=== PATIENT | female | born 1980 | race Caucasian/White ===

== ENCOUNTER 2018-02-07 15:18 | Observation (INO) ==
[2018-02-07 16:03] LABS: Basophils % 0.2 % (0.1-2.0); Eosinophils # 0.1 K/mm3 (0.0-0.4); Eosinophils % 0.3 % (0.1-12.0); Hematocrit 48.7 % (37.0-47.0); Hemoglobin 15.2 g/dL (12.2-16.2); Lymphocytes # 1.3 K/mm3 (0.7-4.5); Lymphocytes % 6.8 K/mm3 (10-50); Mean Corpuscular HGB Conc 31.1 g/dL (31.8-35.4); Mean Corpuscular Hemoglobin 32.2 pg (27.0-31.2); Mean Corpuscular Volume 103.4 fl (81-99); Mean Platelet Volume 7.9 fl (7.4-10.4); Monocytes # 1.1 K/mm3 (0.1-1.0); Neutrophils % 86.7 % (37.0-80.0); Platelet Count 348 K/mm3 (142-424); Red Blood Count 4.71 M/mm3 (4.20-5.40); White Blood Count 18.4 K/mm3 (4.8-10.8)
[2018-02-07 16:16] LABS: Anion Gap 12.8 mEq/L (5-15); Blood Urea Nitrogen 13 mg/dL (7-18); Calcium 9.1 mg/dL (8.5-10.1); Carbon Dioxide 24 mmol/L (21.0-32.0); Chloride 110 mmol/L (98-107); Glucose 93 mg/dL (74-106); Potassium 3.8 mmoL/L (3.5-5.1); Sodium 143 mmol/L (136-145)
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
[2018-02-07 16:39] LABS: Eosinophils % 2 % (0-3); Lymphocytes % 8 % (10-50); Macrocytosis 1+; Monocytes % 7 % (2-9); Neutrophils % 78 % (42-76); Total Cells Counted 100
[2018-02-07 19:40] LABS: Microscopic, Urine URINE MICROSCOPIC (MICROSCOPIC)
[2018-02-07 20:08] LABS: Bacteria,Urine 2+ /lpf; RBC,Urine Occasional #/hpf (0-3); Squamous Epithelial Cell,Urine TNTC #/hpf (0-5); WBC,Urine Occasional #/hpf (0-3)
[2018-02-07 20:11] LABS: Appearance,Urine CLEAR (Clear); Bilirubin,Urine Negative (Negative); Blood, Urine 2+ (Negative); Color,Urine YELLOW (Yellow); Glucose,Urine (UA) Negative (Negative); Ketones,Urine Negative (Negative); Leukocyte Esterase,Urine Negative (Negative); Protein,Urine Negative (Negative); Specific Gravity, Urine >= 1.030 (1.005-1.030); Urobilinogen,Urine 0.2 EU/dl (0.2)
[2018-02-08 08:29] VITALS: BP 106/58
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
== END 2018-02-08 10:22 | disposition home or self-care (01) ==
LOC: ER 15:18 → 2ND 15:18
PROVIDERS: ADMIT Family Medicine; ATTEND Family Medicine

== ENCOUNTER → 2018-07-19 11:45 | Outpatient (CLI) | payer MEDICARE, OTHER, SELFPAY ==
[2018-07-19 14:58] LABS: Basophils % 0.3 % (0.1-2.0); Eosinophils # 0.2 K/mm3 (0.0-0.4); Eosinophils % 2.6 % (0.1-12.0); Hematocrit 39.1 % (37.0-47.0); Hemoglobin 12.9 g/dL (12.2-16.2); Lymphocytes # 3.1 K/mm3 (0.7-4.5); Lymphocytes % 47.2 % (10-50); Mean Corpuscular HGB Conc 32.9 g/dL (31.8-35.4); Mean Corpuscular Hemoglobin 32.8 pg (27.0-31.2); Mean Corpuscular Volume 99.9 fl (81-99); Mean Platelet Volume 8.7 fl (7.4-10.4); Monocytes # 0.5 K/mm3 (0.1-1.0); Monocytes % 7.3 % (1.7-9.3); Neutrophils # 2.8 K/mm3 (1.8-7.8); Neutrophils % 42.6 % (37.0-80.0); Platelet Count 295 K/mm3 (142-424); Red Blood Count 3.91 M/mm3 (4.20-5.40); Red Cell Distribution Width 13.3 % (11.5-17.5); White Blood Count 6.6 K/mm3 (4.8-10.8)
[2018-07-19 16:18] LABS: Alanine Aminotransferase 22 U/L (12-78); Albumin Level 3.6 gm/dL (3.4-5.0); Albumin/Globulin Ratio 1.2 (1.1-1.8); Alkaline Phosphatase 58 U/L (46-116); Anion Gap 12.9 mEq/L (5-15); Aspartate Amino Transferase 39 U/L (15-37); Bilirubin,Total 0.2 mg/dL (0.2-1.0); Blood Urea Nitrogen 15 mg/dL (7-18); Calcium 8.3 mg/dL (8.5-10.1); Carbon Dioxide 24 mmol/L (21.0-32.0); Chloride 107 mmol/L (98-107); Chol/HDL Ratio 3.7 (1-3.5); Cholesterol 178 mg/dL (140-200); Creatinine,Serum 1.24 mg/dL (0.55-1.02); Estimated Glomerular Filt Rate 48 ml/min (>60); Free T4 (Free Thyroxine) 0.93 ng/dl (0.76-1.46); GFR (African American) 58 ML/MIN (>60); Globulin 3.1 gm/dl (1.3-3.2); Glucose 88 mg/dL (74-106); HDL Cholesterol 48 mg/dL (29-89); LDL Cholesterol 89 mg/dL (0-130); Potassium 3.9 mmoL/L (3.5-5.1); Sodium 140 mmol/L (136-145); Thyroid Stimulating Hormone 2.77 uIU/ml (0.358-3.740); Total Protein,Serum 6.7 gm/dL (6.4-8.2); Triglycerides 204 mg/dL (30-200); VLDL Cholesterol 41 mg/dL (0-40)
== END ==
PROVIDERS: PCP Physician Assistant; Visit Provider Physician Assistant
DX: E03.9 Hypothyroidism, unspecified (principal); I10 Essential (primary) hypertension
CPT/HCPCS: 36415; 80053; 80061; 84439; 84443; 85025

== ENCOUNTER → 2018-10-21 11:46 | Outpatient (CLI) | payer MEDICARE, OTHER, SELFPAY ==
[2018-10-21 14:17] LABS: Basophils % 0.5 % (0.1-2.0); Eosinophils # 0.2 K/mm3 (0.0-0.4); Eosinophils % 4.1 % (0.1-12.0); Hematocrit 34.1 % (37.0-47.0); Hemoglobin 11.2 g/dL (12.2-16.2); Lymphocytes # 1.8 K/mm3 (0.7-4.5); Lymphocytes % 48.6 % (10-50); Mean Corpuscular HGB Conc 32.9 g/dL (31.8-35.4); Mean Corpuscular Hemoglobin 32.6 pg (27.0-31.2); Mean Platelet Volume 7.6 fl (7.4-10.4); Monocytes # 0.3 K/mm3 (0.1-1.0); Monocytes % 6.7 % (1.7-9.3); Neutrophils # 1.5 K/mm3 (1.8-7.8); Platelet Count 247 K/mm3 (142-424); Red Blood Count 3.44 M/mm3 (4.20-5.40); White Blood Count 3.8 K/mm3 (4.8-10.8)
[2018-10-21 14:47] LABS: Alanine Aminotransferase 40 U/L (12-78); Albumin Level 3.4 gm/dL (3.4-5.0); Albumin/Globulin Ratio 1.2 (1.1-1.8); Alkaline Phosphatase 59 U/L (46-116); Anion Gap 14.8 mEq/L (5-15); Aspartate Amino Transferase 27 U/L (15-37); Bilirubin,Total 0.1 mg/dL (0.2-1.0); Blood Urea Nitrogen 11 mg/dL (7-18); Calcium 8.5 mg/dL (8.5-10.1); Carbon Dioxide 24 mmol/L (21.0-32.0); Chloride 105 mmol/L (98-107); Creatinine,Serum 0.88 mg/dL (0.55-1.02); Estimated Glomerular Filt Rate 71 ml/min (>60); GFR (African American) 86 ML/MIN (>60); Globulin 2.9 gm/dl (1.3-3.2); Glucose 81 mg/dL (74-106); Potassium 3.8 mmoL/L (3.5-5.1); Sodium 140 mmol/L (136-145); Total Protein,Serum 6.3 gm/dL (6.4-8.2)
[2018-10-23 08:25] LABS: Iron 62 ug/dL (27-159); Iron Saturation 24 % (15-55); UIBC 196 ug/dL (131-425)
[2018-10-23 08:42] LABS: Folate 9.2 ng/mL (>3.0); Vitamin B12 363 pg/mL (232-1245)
[2018-10-23 11:48] LABS: Peripheral Smear Review Scanned Result
== END ==
PROVIDERS: PCP Physician Assistant; Visit Provider Physician Assistant
DX: D64.9 Anemia, unspecified (principal); R94.4 Abnormal results of kidney function studies
CPT/HCPCS: 36415; 80053; 82043; 82607; 82746; 83540; 83550; 85025; 85060

== ENCOUNTER 2022-03-05 10:56 | Emergency (ER) | payer MEDICARE, SELFPAY ==
[2022-03-05 11:10] VITALS: BP 129/62; PULSE 69; RESP 18; TEMP 36.8; O2SAT 98; BMI 27.8
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
[2022-03-05 11:28] VITALS: BP 129/62; PULSE 69; RESP 18; TEMP 36.8; O2SAT 98
== END 2022-03-05 11:32 | disposition home or self-care (01) ==
PROVIDERS: Emergency Provider Nurse Practitioner
DX: Z20.822 Contact with and (suspected) exposure to COVID-19 (principal)
CPT/HCPCS: 99211; C9803; G0463; U0003; U0005

== ENCOUNTER → 2022-03-31 14:30 | Outpatient (CLI) | payer MEDICARE, MEDICAID, SELFPAY ==
[2022-03-31 21:07] LABS: Basophils # 0.1 K/mm3 (0-0.2); Basophils % 1.1 % (0.1-2.0); Eosinophils # 0.1 K/mm3 (0.0-0.4); Eosinophils % 1.5 % (0.1-12.0); Hematocrit 39.7 % (37.0-47.0); Hemoglobin 12.8 g/dL (12.2-16.2); Lymphocytes # 1.7 K/mm3 (0.7-4.5); Lymphocytes % 35.4 % (10-50); Mean Corpuscular HGB Conc 32.2 g/dL (31.8-35.4); Mean Corpuscular Hemoglobin 33.4 pg (27.0-31.2); Mean Corpuscular Volume 103.6 fl (81-99); Mean Platelet Volume 10.3 fl (7.4-10.4); Monocytes # 0.3 K/mm3 (0.1-1.0); Monocytes % 6.7 % (1.7-9.3); Neutrophils # 2.6 K/mm3 (1.8-7.8); Neutrophils % 55.3 % (37.0-80.0); Platelet Count 344 K/mm3 (142-424); Red Blood Count 3.83 M/mm3 (4.20-5.40); White Blood Count 4.8 K/mm3 (4.8-10.8)
[2022-03-31 21:20] LABS: Alanine Aminotransferase 13 U/L (12-78); Albumin Level 3.9 g/dl (3.5-5.0); Albumin/Globulin Ratio 1.4 (1.1-1.8); Alkaline Phosphatase 82 U/L (38-126); Anion Gap 14.6 mEq/L (5-15); Aspartate Amino Transferase 28 U/L (14-36); Bilirubin,Total 0.4 mg/dl (0.2-1.3); Blood Urea Nitrogen 6 mg/dl (7-17); Calcium 9.1 mg/dl (8.4-10.2); Carbon Dioxide 18 mmol/L (22.0-30.0); Chloride 112 mmol/L (98-107); Estimated Glomerular Filt Rate 68 ml/min (>60); GFR (African American) 82 ML/MIN (>60); Globulin 2.8 g/dL (1.3-3.2); Glucose 95 mg/dl (74-100); Potassium 3.6 mmoL/L (3.5-5.1); Sodium 141 mmol/L (136-145); Total Protein,Serum 6.7 g/dl (6.3-8.2)
[2022-03-31 21:50] LABS: Thyroid Stimulating Hormone 0.76 uIU/mL (0.465-4.68)
[2022-03-31 23:25] LABS: Hemoglobin A1C 4.7 % (4.0-6.0)
== END ==
PROVIDERS: Student in an Organized Health Care Education/Training Program; PCP Family Medicine; Visit Provider Family Medicine
DX: Z76.89 Persons encountering health services in other specified circumstances (principal); E16.2 Hypoglycemia, unspecified; I10 Essential (primary) hypertension; E03.9 Hypothyroidism, unspecified
CPT/HCPCS: 80053; 83036; 84443; 85025

== ENCOUNTER 2022-06-23 08:41 | Emergency (ER) | payer MEDICARE, MEDICAID, SELFPAY ==
--- NOTE | 2022-06-23 09:39 | EXP.UTC ---
Discharge Plan Disposition Patient Disposition: Home, Self-Care Condition: Good Prescriptions Prescriptions: New benzonatate [benzonatate] 100 mg capsule 100 mg PO TIDP PRN (Reason: Cough) Qty: 30 0RF oseltamivir [Tamiflu] 75 mg capsule 75 mg PO BID Qty: 10 0RF ondansetron 4 mg Tablet,Disintegrating 4 mg PO Q8H PRN (Reason: Nausea) Qty: 9 0RF No Action lubiprostone 8 mcg capsule 8 mcg PO BID levothyroxine 25 mcg tablet 25 mcg PO DAILY trazodone 150 mg tablet 150 mg PO HS Qty: 60 2RF topiramate 100 mg tablet 100 mg PO BID Qty: 60 2RF ondansetron 4 mg tablet,disintegrating 4 mg PO TID PRN (Reason: nausea and vomiting) Qty: 60 2RF cyclobenzaprine 10 mg tablet 10 mg PO BID PRN (Reason: muscle spasm) Qty: 60 2RF bupropion HCl 450 mg tablet extended release 24 hr 450 mg PO DAILY Qty: 30 2RF dexlansoprazole [Dexilant] 60 mg capsule,biphase delayed releas 60 mg PO BID 90 Days Qty: 180 0RF suvorexant 10 mg tablet 10 mg PO HS Qty: 30 2RF atenolol 50 mg tablet 50 mg PO DAILY Qty: 60 2RF Referrals Follow up/Referrals: Oziel Hickman MD [Primary Care Provider] - See instructions Activity Restrictions/Add. Instructions Additional Instructions/Restrictions: Drink plenty of fluids. Take tylenol or ibuprofen for pain or fever. Take the medications as directed. Follow up with your regular doctor. GO TO THE ER FOR ANY WORSENING SYMPTOMS Clinical Impressions Clinical Impression: Influenza A Instructions Patient Instructions: DI for Influenza -- Adult, Oseltamivir Discharge ED Provider: Bakari Cho [facility] General Stated complaint: cough, congestion, sore throat Time Seen by Provider: 06/23/22 09:39 History of Present Illness Provider Complaint: She states that since last night she has ran a fever, chilled, had body aches, and she has had a cough. Related Data Home Medications Medication Instructions Recorded Confirmed levothyroxine 25 mcg tablet 25 mcg PO DAILY thyroid 03/31/22 03/31/22 lubiprostone 8 mcg capsule 8 mcg PO BID 03/31/22 03/31/22 Previous Rx's Medication Instructions Recorded bupropion HCl 450 mg 24 hr tablet, 450 mg PO DAILY #30 tabs 03/31/22 extended release cyclobenzaprine 10 mg tablet 10 mg PO BID PRN muscle spasm #60 03/31/22 tabs ondansetron 4 mg disintegrating 4 mg PO TID PRN nausea and 03/31/22 tablet vomiting #60 tabs topiramate 100 mg tablet 100 mg PO BID #60 tabs 03/31/22 trazodone 150 mg tablet 150 mg PO HS insomnia #60 tabs 03/31/22 dexlansoprazole 60 mg 60 mg PO BID 90 days #180 caps 04/04/22 capsule,biphase delayed release (Dexilant) suvorexant 10 mg tablet 10 mg PO HS #30 tabs 04/04/22 atenolol 50 mg tablet 50 mg PO DAILY HTN #60 tabs 05/18/22 benzonatate 100 mg capsule 100 mg PO TIDP PRN Cough #30 caps 06/23/22 ondansetron 4 mg disintegrating 4 mg PO Q8H PRN Nausea #9 tabs 06/23/22 tablet oseltamivir 75 mg capsule (Tamiflu) 75 mg PO BID #10 caps 06/23/22 Allergies Allergy/AdvReac Type Severity Reaction Status Date / Time codeine [CODEINE] Allergy Mild Verified 03/31/22 13:41 morphine [MORPHINE] Allergy Mild Verified 03/31/22 13:41 NSAIDS (Non-Steroidal Allergy Verified 06/23/22 10:16 Anti-Inflamma PFSH PFSH Medical History CRPS (complex regional pain syndrome) Depression Hypoglycemia Hypothyroidism Surgical History History of hysterectomy Family History Father Stroke Mother Heart attack, Onset Age: 52 Social History Smoking Status: Never smoker alcohol intake: never substance use type: denies use current occupational status: disabled Travel in the last 8 weeks: None household members: significant other and childre
[2022-06-23 09:55] VITALS: BP 141/91; PULSE 64; RESP 20; TEMP 36.7; O2SAT 98; BMI 28.3
[2022-06-23 09:59] LABS: UTC Influenza A Antigen Positive (Negative); UTC Influenza B Antigen Negative (Negative)
[2022-06-23 10:26] VITALS: BP 141/91; PULSE 64; RESP 20; TEMP 36.7; O2SAT 98
== END 2022-06-23 10:31 | disposition home or self-care (01) ==
PROVIDERS: Emergency Provider Nurse Practitioner Family; PCP Family Medicine
DX: J10.1 Influenza due to other identified influenza virus with other respiratory manifestations (principal)
CPT/HCPCS: 87804; 99212; G0463

== ENCOUNTER 2022-07-11 16:15 | Emergency (ER) | payer MEDICARE, MEDICAID, SELFPAY ==
[2022-07-11 16:47] VITALS: BP 112/83; PULSE 89; RESP 16; TEMP 36.9; O2SAT 98; BMI 26.5
--- NOTE | 2022-07-11 17:00 | EXP.UTC ---
Discharge Plan Disposition Patient Disposition: Home, Self-Care Condition: Good Prescriptions Prescriptions: New azithromycin [azithromycin] 250 mg tablet 250 mg PO DIRECTED Qty: 6 0RF Rx Instructions: Take two (2) tablets on day #1, then one (1) tablet day #2 thru #5 prednisone [prednisone] 20 mg tablet 20 mg PO BID Qty: 10 0RF benzonatate 100 mg capsule 100 mg PO BID PRN (Reason: cough) Qty: 10 0RF No Action lubiprostone 8 mcg capsule 8 mcg PO BID levothyroxine 25 mcg tablet 25 mcg PO DAILY trazodone 150 mg tablet 150 mg PO HS Qty: 60 2RF topiramate 100 mg tablet 100 mg PO BID Qty: 60 2RF ondansetron 4 mg tablet,disintegrating 4 mg PO TID PRN (Reason: nausea and vomiting) Qty: 60 2RF cyclobenzaprine 10 mg tablet 10 mg PO BID PRN (Reason: muscle spasm) Qty: 60 2RF bupropion HCl 450 mg tablet extended release 24 hr 450 mg PO DAILY Qty: 30 2RF dexlansoprazole [Dexilant] 60 mg capsule,biphase delayed releas 60 mg PO BID 90 Days Qty: 180 0RF suvorexant 10 mg tablet 10 mg PO HS Qty: 30 2RF atenolol 50 mg tablet 50 mg PO DAILY Qty: 60 2RF benzonatate [benzonatate] 100 mg capsule 100 mg PO TIDP PRN (Reason: Cough) Qty: 30 0RF oseltamivir [Tamiflu] 75 mg capsule 75 mg PO BID Qty: 10 0RF ondansetron 4 mg Tablet,Disintegrating 4 mg PO Q8H PRN (Reason: Nausea) Qty: 9 0RF Referrals Follow up/Referrals: Oziel Hickman MD [Primary Care Provider] - See instructions Activity Restrictions/Add. Instructions Additional Instructions/Restrictions: Start antibiotic today. Be sure to complete entire prescription even if feeling better Tylenol and ibuprofen as needed for pain or fever Humidifier/vaporizer/hot steamy shower Follow-up with primary care tomorrow. Follow-up immediately in the ER of the [facility] for new or worsening symptoms or no noticeable improvement over the next 48-72 hours. Stop smoking Tessalon Perles will not cause drowsiness to use at bedtime to help stop cough so that she can get some sleep Start steroids today. Helps with inflammation therefore coughing and wheezing. Follow directions on package. Clinical Impressions Clinical Impression: Bronchitis Instructions Patient Instructions: Acute Bronchitis Discharge ED Provider: Sav ([facility])[place] [facility] [place] General Stated complaint: cough, body aches, sore throat, [place], congestion Mode of Arrival: Ambulatory Source of Information: Patient Limitations: No Limitations Time Seen by Provider: 07/11/22 17:00 Description of Symptoms (Recalled from Triage Doc. by RN): pt comes in with c/o wet cough, headache, body aches, chest congestion, sore throat, ear pain. pt had flu a two weeks ago. symptoms began sunday HEENT Symptoms (Recalled from RN notes): Yes Resp Symptoms (Recalled from RN notes): Yes Skin Symptoms (Recalled from RN notes): No MS Symptoms (Recalled from RN notes): No Functional Status (Recalled from RN notes): n/a History of Present Illness Provider Complaint: 42 yr old female c/o wet cough, headache, body aches, chest congestion, sore throat, ear pain. pt had flu a two weeks ago. symptoms began Sunday Related Data Home Medications Medication Instructions Recorded Confirmed levothyroxine 25 mcg tablet 25 mcg PO DAILY thyroid 03/31/22 03/31/22 lubiprostone 8 mcg capsule 8 mcg PO BID 03/31/22 03/31/22 Previous Rx's Medication Instructions Recorded bupropion HCl 450 mg 24 hr tablet, 450 mg PO DAILY #30 tabs 03/31/22 extended release cyclobenzaprine 10 mg tablet 10 mg PO BID PRN muscle spasm #60 03/31/22 tabs ondansetron 4 mg disintegrating 4 mg PO TID PRN nausea and 03/31/22 tablet vomiting #60 tabs topiramate 100 mg tablet 100 mg PO BID #60 tabs 03/31/22 trazodone 150 mg tablet 150 mg PO HS insomnia #60 tabs 03/31/22 dexlansoprazole 60 mg 60 mg PO BID 90 days #180 caps 04/04/22 capsule,biphase delayed release (Dexilant) suvorexant
[2022-07-11 17:23] VITALS: BP 112/83; PULSE 89; RESP 16; TEMP 36.9
== END 2022-07-11 17:25 | disposition home or self-care (01) ==
PROVIDERS: Emergency Provider Nurse Practitioner Family; PCP Family Medicine
DX: J40 Bronchitis, not specified as acute or chronic (principal)
CPT/HCPCS: 87275; 87276; 99212; G0463

== ENCOUNTER → 2023-03-08 10:54 | Outpatient (CLI) | payer MEDICARE, SELFPAY ==
--- NOTE | 2023-03-08 10:59 | XR_ITS ---
FINAL REPORT CLINICAL HISTORY: screening. r/o osteoporosis COMPARISON: None FINDINGS: Using L1-4, the bone mineral density of the spine is 1.109 g/cm2, corresponding to T-score of 0.6, within normal limits. Using the left hip, the bone mineral density of the femoral neck is 0.711 g/cm2, corresponding to a T-score of -1.2, consistent with osteopenia. Using the right hip, the bone mineral density of the femoral neck is 0.685 g/cm2, corresponding to a T-score of -1.5, consistent with osteopenia. FRAX 10 year fracture risk is 0.3% for a hip fracture and 3% for a major osteoporotic fracture. NOTE: T-score: Standard deviation compared with peak bone mass of young adult mean. *Following the recommendations of the International Society of Bone densitometry, classification of hip BMD is based on the lower of two T-scores; total hip or femoral neck. IMPRESSION: Diminished bone mineral density consistent with osteopenia. Reviewed, Interpreted and Dictated by Dada Paez MD Transcribed by Magi Benton Authenticated and . [facility]
[2023-03-08 11:42] LABS: Basophils % 0.5 % (0.1-2.0); Eosinophils # 0.1 K/mm3 (0.0-0.4); Eosinophils % 1.6 % (0.1-12.0); Hematocrit 36.9 % (37.0-47.0); Lymphocytes # 1.6 K/mm3 (0.7-4.5); Mean Corpuscular HGB Conc 32.5 g/dL (31.8-35.4); Mean Corpuscular Hemoglobin 31.8 pg (27.0-31.2); Mean Corpuscular Volume 97.9 fl (81-99); Mean Platelet Volume 8.3 fl (7.4-10.4); Monocytes # 0.3 K/mm3 (0.1-1.0); Neutrophils # 4.4 K/mm3 (1.8-7.8); Neutrophils % 67.9 % (37.0-80.0); Platelet Count 284 K/mm3 (142-424); Red Blood Count 3.76 M/mm3 (4.20-5.40); White Blood Count 6.5 K/mm3 (4.8-10.8)
[2023-03-08 13:01] LABS: Alanine Aminotransferase 14 U/L (12-78); Albumin Level 3.6 g/dl (3.5-5.0); Albumin/Globulin Ratio 1.3 (1.1-1.8); Alkaline Phosphatase 76 U/L (38-126); Anion Gap 12.3 mEq/L (5-15); Aspartate Amino Transferase 22 U/L (14-36); Bilirubin,Total 0.3 mg/dl (0.2-1.3); Blood Urea Nitrogen 10 mg/dl (7-17); Calcium 8.5 mg/dl (8.4-10.2); Carbon Dioxide 20 mmol/L (22.0-30.0); Chloride 110 mmol/L (98-107); Chol/HDL Ratio 3.6 (1-3.5); Cholesterol 215 mg/dl (140-200); Estimated Glomerular Filt Rate 60 ml/min (>60); GFR (African American) 73 ML/MIN (>60); Globulin 2.8 g/dL (1.3-3.2); Glucose 87 mg/dl (74-100); HDL Cholesterol 60 mg/dl (40-60); Potassium 4.3 mmoL/L (3.5-5.1); Sodium 138 mmol/L (136-145); Total Protein,Serum 6.4 g/dl (6.3-8.2); Triglycerides 153 mg/dl (30-150); VLDL Cholesterol 31 mg/dL (0-40)
[2023-03-08 13:13] LABS: Direct LDL Cholesterol 112.31 mg/dL (100-129)
[2023-03-08 13:32] LABS: Thyroid Stimulating Hormone 2.01 uIU/mL (0.465-4.68)
== END ==
PROVIDERS: PCP Family Medicine; Visit Provider Family Medicine
DX: E03.9 Hypothyroidism, unspecified (principal); K21.9 Gastro-esophageal reflux disease without esophagitis; Z78.0 Asymptomatic menopausal state; R07.9 Chest pain, unspecified
CPT/HCPCS: 36415; 77080; 80053; 80061; 84443; 85025

== ENCOUNTER → 2023-03-14 11:31 | Outpatient (CLI) | payer MEDICARE, SELFPAY ==
--- NOTE | 2023-03-14 | CA_ITS ---
APPROVED REPORT Exam: Pharmacologic Technologist: Missy James Ht: 5 ft 2 in Wt: 154 lbs BSA: 1.71 m2 HR: 63 bpm BP: 132/88 mmHg Rhythm: NSR Indications: Chest pain Medical History Medications: Levothyroxine,,,,, Atenolol,,,,, TopIRAMATE,,,,, BuPROPION,,,,, Cyclobenzaprine,,,,, Trazodone,,,,, ONdansetron,,,,, Dexlansoprazole,,,,, Suvorexant,,,,, LUbiprostone,,,,, Stress Test Details Test: LEXISCAN HR Resting HR: 65 bpm Max Heart Rate (APMHR): 175 bpm Max HR Achieved: 100 bpm Target HR (85% APMHR): 149 bpm % of APMHR: 57 Recovery HR: 75 bpm BP Resting BP: 132.0/88.0 mmHg Max BP: 136.0/95.0 mmHg Recovery BP: 136.0/95.0 mmHg ECG Resting ECG: Normal sinus rhythm, early repolarization pattern Stress ECG: No change Arrhythmia: None Clinical Exercise duration: 04:00 min Highest Stage Achieved: Exercise capacity: 1.0 METs Stress ECG Conclusion Symptoms: Mild chest pressure, shortness of air, head discomfort. Arrhythmias/Ectopy: None ST-T Changes: No significant changes. Conclusion: Non-diagnostic Lexiscan stress test due to baseline ST abnormalities. Myoview images reported separately. Test Summary REST . . . . . . . Resting REST 04:52 . . 65 . 132/ 88 . . Stage 1 . . . . . . . Myoview Injected Stage 1 01:00 . . 84 . . . . Stage 2 01:00 . . 97 . 123/ 85 . . Stage 3 01:00 . . 99 . 134/ 71 . . Stage 4 01:00 . . 96 . 120/ 85 . Stop exercise at 04:00 RECOVERY 01:00 . . 92 . 129/ 83 . . RECOVERY 02:00 . . 83 . 129/ 83 . . RECOVERY 03:00 . . 79 . 129/ 83 . . RECOVERY 04:00 . . 76 . 129/ 83 . . RECOVERY 04:34 . . 78 . 136/ 95 . . Electronically signed by : Uyen Guardado, 03/17/2023 15:21:28
--- NOTE | 2023-03-14 11:31 | NM_ITS ---
APPROVED REPORT Exam: Nuclear Stress Test Indication: FM HX, C.P., SOB, FATIGUE Patient Location: Outpatient Stress Tech: Missy James [place] Tech:Dunia Keller ROSCOEAbraham RT(R)(N) Ht: 5 ft 2 in Wt: 150 lbs Bra Size: 36DDD HR: 65 bpm BP: 132/88 mmHg BSA: 1.69 m2 Rhythm: NSR TID: 1.69 BMI: 27.4 History: FM HX, C.P., SOB, FATIGUE Procedure: Patient received 0.4 mg of intravenous Lexiscan, resting heart rate 65 bpm, resting blood pressure 132/88 mmHg, with Lexiscan maximum heart rate achieved was 99 bpm which is % of the maximum predicted heart rate and blood pressure was 123/71 mmHg. With Lexiscan, patient denied any complaint of chest pain. Cardiac Stress and Resting SPECT Images: Cardiac Stress and Resting SPECT images were obtained using technetium 99m Myoview 30.6 mCi stress and 9.27 mCi at rest. Resting and stress imaging in both supine and prone positions demonstrate no evidence of fixed or reversible perfusion defects. There is marked increase in transient ischemic dilatation ratio (TID 1.69), suggestive of possible balanced ischemia or multivessel disease. Gated imaging demonstrates normal global and regional LV systolic function. LVEF is calculated at 59%. Conclusion: No evidence of fixed or reversible perfusion defects. Marked increase in transient ischemic dilatation ratio (TID 1.69), suggestive of possible balanced ischemia or multivessel disease. Gated imaging demonstrates normal global and regional LV systolic function. LVEF is calculated at 59%. Electronically signed by : Uyen Guardado, 03/17/2023 15:24:28
== END ==
PROVIDERS: PCP Family Medicine; Visit Provider Family Medicine
DX: R07.9 Chest pain, unspecified (principal)
CPT/HCPCS: 78452; 93017; A9502; J2785

== ENCOUNTER → 2023-03-29 09:56 | Outpatient (CLI) | payer MEDICARE, MEDICAID, SELFPAY ==
--- NOTE | 2023-03-29 10:41 | NM_ITS ---
FINAL REPORT TECHNIQUE: 0.54 Millicuries of technetium 99m sulfur colloid was ingested with 2 whole eggs, 1 white toast with butter and 6 oz cup of water CLINICAL HISTORY: VOMITING 10:15 am .54 [facility] tc sulfur colloid injected into 2 whole eggs scrambled 1 white toast with butter 6 oz cup of water FINDINGS: GASTRIC EMPTYING SCAN Static images show normal emptying of the stomach into the small bowel. Based on the time activity curve, the estimated half-emptying time is 0.54 minutes. IMPRESSION: Gastric emptying is within the upper limits of normal. Reviewed, Interpreted and Dictated by Dada Paez MD Transcribed by Marielos Lo Authenticated and [facility]
== END ==
PROVIDERS: PCP Family Medicine; Visit Provider Nurse Practitioner
DX: R11.2 Nausea with vomiting, unspecified (principal)
CPT/HCPCS: 78264; A9541

== ENCOUNTER 2023-09-13 15:28 | Outpatient (CLI) | payer MEDICARE, MEDICAID, SELFPAY ==
--- NOTE | 2023-09-13 15:28 | MM_ITS ---
PROCEDURE INFORMATION: Exam: MG Bilateral Screening 3D Mammography Exam date and time: 09/13/2023 3:24 PM Age: 43 years old Clinical indication: Screening mammogram. TECHNIQUE: Imaging protocol: Bilateral Screening tomosynthesis and 2D mammography including computer-aided detection (CAD) when performed. COMPARISON: No relevant prior studies available. FINDINGS: MAMMOGRAPHY: Breast composition: There are scattered areas of fibroglandular density. Mass: None. Architectural distortion: No new or suspicious architectural distortion. Calcifications: No new or suspicious calcifications are present Asymmetric density: No new or suspicious asymmetric density is present Skin thickening: None. Axillary adenopathy: None. IMPRESSION: No mammographic evidence of malignancy. Recommend annual screening mammography unless otherwise clinically indicated. ASSESSMENT: BI-RADS category 1: Negative
== END 2023-09-13 23:59 ==
LOC: RAD 15:28
PROVIDERS: PCP Family Medicine; Visit Provider Family Medicine
DX: Z12.31 Encounter for screening mammogram for malignant neoplasm of breast (principal)
CPT/HCPCS: 77063; 77067

== ENCOUNTER 2024-04-04 15:49 | Emergency (ER) | payer MEDICARE, MEDICAID, SELFPAY ==
--- NOTE | 2024-04-04 15:57 | HMH.EDGENADL ---
Discharge Plan Disposition Patient Disposition: Home, Self-Care Condition: Good Prescriptions Prescriptions: New oxycodone 10 mg tablet 10 mg PO BID PRN (Reason: pain) 5 Days Qty: 10 0RF ondansetron 4 mg tablet,disintegrating 4 mg PO Q8H PRN (Reason: nausea and vomiting) 5 Days Qty: 10 0RF tamsulosin 0.4 mg capsule 0.4 mg PO HS 30 Days Qty: 30 0RF No Action ondansetron HCl 4 mg tablet 4 mg PO Q8H PRN cetirizine-pseudoephedrine [Zyrtec-D] 5-120 mg tablet extended release 12 hr 1 tab PO BID lamotrigine [Lamictal XR] 50 mg tablet extended release 24hr 50 mg PO DAILY Qty: 30 2RF bupropion HCl 450 mg tablet extended release 24 hr 450 mg PO DAILY Qty: 30 1RF dexlansoprazole 60 mg capsule,biphase delayed releas See Rx Instructions .ROUTE .COMPLEX Qty: 180 0RF Dose Instruction: TAKE 1 CAPSULE BY MOUTH TWICE DAILY Rx Instructions: TAKE 1 CAPSULE BY MOUTH TWICE DAILY topiramate 100 mg tablet See Rx Instructions .ROUTE .COMPLEX Qty: 60 2RF Dose Instruction: TAKE 1 TABLET BY MOUTH TWICE DAILY Rx Instructions: TAKE 1 TABLET BY MOUTH TWICE DAILY levothyroxine 25 mcg tablet See Rx Instructions .ROUTE .COMPLEX Qty: 30 10RF Dose Instruction: TAKE 1 TABLET BY MOUTH EVERY MORNING ON AN EMPTY STOMACH Rx Instructions: TAKE 1 TABLET BY MOUTH EVERY MORNING ON AN EMPTY STOMACH atenolol 50 mg tablet See Rx Instructions .ROUTE .COMPLEX Qty: 90 1RF Dose Instruction: TAKE 1 TABLET BY MOUTH ONCE DAILY Rx Instructions: TAKE 1 TABLET BY MOUTH ONCE DAILY cyclobenzaprine 10 mg tablet See Rx Instructions .ROUTE .COMPLEX Qty: 60 2RF Dose Instruction: TAKE 1 TABLET BY MOUTH TWICE DAILY NEEDED FOR MUSCLE SPAMS Rx Instructions: TAKE 1 TABLET BY MOUTH TWICE DAILY NEEDED FOR MUSCLE SPAMS trazodone 150 mg tablet See Rx Instructions .ROUTE .COMPLEX Qty: 30 2RF Dose Instruction: TAKE 1 TABLET BY MOUTH AT BEDTIME Rx Instructions: TAKE 1 TABLET BY MOUTH AT BEDTIME suvorexant 10 mg tablet 10 mg PO HS Qty: 30 2RF Referrals Follow up/Referrals: Oziel Hickman MD [Primary Care Provider] - See instructions Activity Restrictions/Add. Instructions Additional Instructions/Restrictions: I have prescribed 4 different medications to help with pain that appears to be due to a kidney stone. These are the same types of medications you have received in the emergency department. 1 is an anti-inflammatory that should help with kidney stone type pain. Another is a stronger type of pain medication which will help with breakthrough pain to use as needed. I have additionally prescribed a nausea medication as well as a medication called tamsulosin or Flomax which can help pass the kidney stone. Please return with any new or worsening symptoms. Clinical Impressions Clinical Impression: Acute left flank pain Print Language Print Language: Ecuadorean Discharge ED Provider: Ephraim Noble General Adult HPI General Chief complaint: PAIN Stated complaint: lower back pain and side,? kidney stone,vomiting Time Seen by Provider: 04/04/24 15:57 History of Present Illness HPI narrative: The patient presents with a chief complaint of persistent pain, which she describes as kidney stone type of pain. She has a history of kidney stones, having experienced 22 episodes in the past. The current episode has been ongoing for 10 days, which is longer than her previous experiences. The pain is more prominent on one side and spreads down to the groin area. She reports that she can usually pass kidney stones at home about half the time, and they have typically been small. She has had a procedure involving stents during , which she found to be more painful than the kidney stone pain. She has not had any hospitalizations for kidney stones and is unsure if she has ever had any infected kidney stones. Her last CT scan was three years ago reportedly during a colonoscopy, during which kidney stones were found in both kidneys. She has a known allergy to morphine and is unsure if she has ever taken Toradol or has any allergies to NSAIDs. She expresses concern about having had many CT scans in the past. Please note that above description of symptoms, in this electronic medical record under categorization of recalled from ER triage doctor by RN are reflective of an initial nursing assessment, however, is not reflective of my full history and physical exam that was personally taken and clarified. Consequentially, this preceding description of symptoms, which may include the patient's categorized chief complaint in the EMR, do not reflect my personal clinical impression, and the ultimate description of history of present illness and patient stated complaints should be deferred to this section of the note. Unless stated otherwise or congruent with this section of the note, additional signs, symptoms, or incongruence should be interpreted as inaccurate with my clinical impression. Related Data Home Medications ?Medication ?Instructions ?Recorded ?Confirmed cetirizine 5 mg-pseudoephedrine ER 1 tab PO BID 02/20/23 02/27/24 120 mg tablet,extended release,12hr (Zyrtec-D) ondansetron HCl 4 mg tablet 4 mg PO Q8H PRN 02/20/23 02/27/24 Previous Rx's ?Medication ?Instructions ?Recorded dexlansoprazole 60 mg See Rx Instructions .Route 01/02/23 capsule,biphase delayed release .COMPLEX #180 caps topiramate 100 mg tablet See Rx Instructions .Route 10/26/23 .COMPLEX #60 tabs levothyroxine 25 mcg tablet See Rx Instructions .Route 12/25/23 .COMPLEX #30 tabs atenolol 50 mg tablet See Rx Instructions .Route 01/24/24 .COMPLEX #90 tabs cyclobenzaprine 10 mg tablet See Rx Instructions .Route 01/24/24 .COMPLEX #60 tabs trazodone 150 mg tablet See Rx Instructions .Route 01/24/24 .COMPLEX #30 tabs suvorexant 10 mg tablet 10 mg PO HS #30 tabs 01/25/24 bupropion HCl 450 mg 24 hr tablet, 450 mg PO DAILY #30 tabs 02/27/24 extended release lamotrigine 50 mg tablet,extended 50 mg PO DAILY #30 tabs 02/27/24 release 24 hr (Lamictal XR) ondansetron 4 mg disintegrating 4 mg PO Q8H PRN nausea and 04/04/24 tablet vomiting 5 days #10 tabs oxycodone 10 mg tablet 10 mg PO BID PRN pain 5 days #10 04/04/24 tabs tamsulosin 0.4 mg capsule 0.4 mg PO HS 30 days #30 caps 04/04/24 Allergies Allergy/AdvReac Type Severity Reaction Status Date / Time codeine [CODEINE] Allergy Mild Verified 02/27/24 13:40 morphine [MORPHINE] Allergy Mild Verified 02/27/24 13:40 NSAIDS (Non-Steroidal Allergy Verified 02/27/24 13:40 Anti-Inflamma [facility] Disclaimer: The information contained in this section may have been updated after the patient was seen, as this information can be updated by other users. Medical History Hypoglycemia CRPS (complex regional pain syndrome) Depression Hypothyroidism Surgical History History of carpal tunnel surgery H/O oral surgery History of hysterectomy Family History Father Stroke Mother Heart attack, Onset Age: 52 Social History Smoking Status: Never smoker alcohol intake: never substance use type: denies use current occupational status: disabled Travel in the last 8 weeks: None household members: significant other and children housing: house marital status: life partner caffeine: Yes (1-2/DAY) ROS Obtained: Yes other As per HPI Physical Exam General General appearance: alert and in distress Head Head exam: atraumatic and normocephalic Eye Eye exam: Present normal appearance Neck Neck exam: Present normal inspection Chest Chest inspection: Present normal inspection and symmetric chest wall rise Respiratory Respiratory exam: Present normal lung sounds bilaterally; Absent respiratory distress Cardiovascular Cardiovascular exam: Present regular rate and normal rhythm Abdominal Exam Abdominal exam: Present soft Comment: Left flank tenderness, no abdominal tenderness to palpation Neurological Exam Neurological exam: Present alert and oriented X3 Psychiatric Psychiatric exam: Present normal affect and normal mood Skin Skin exam: Present warm and dry Medical Decision Making Medical Records Medical records reviewed: Yes I reviewed the patient's medical records. Dinesh Inquiry Pt receiving controlled substance: No Vital Signs: 04/04/24 16:21 04/04/24 18:15 04/04/24 18:45 Temperature 98.1 F Temperature Source Oral Pulse Rate 77 87 Pulse Rate [Right Brachial] 86 Respiratory Rate 16 Blood Pressure 132/81 142/98 H Blood Pressure [Right Arm] 158/105 H Blood Pressure Mean [Right Arm] 122 Blood Pressure Source Blood Pressure Source [Right Arm] Automatic Cuff Blood Pressure Position Blood Pressure Position [Right Arm] Sitting 02 Sat by Pulse Oximetry 98 96 98 Oxygen Delivery Method Room Air 04/04/24 20:21 Temperature 98.0 F Temperature Source Oral Pulse Rate 72 Pulse Rate [Right Brachial] Respiratory Rate 16 Blood Pressure 147/103 H Blood Pressure [Right Arm] Blood Pressure Mean [Right Arm] Blood Pressure Source Automatic Cuff Blood Pressure Source [Right Arm] Blood Pressure Position Sitting Blood Pressure Position [Right Arm] 02 Sat by Pulse Oximetry Oxygen Delivery Method Room Air Lab Data Lab Results 04/04/24 16:05: Urine Color Yellow, Urine Appearance Clear, Urine pH 6.0, Ur Specific [place] 1.025, Urine Protein Trace, Urine Glucose (UA) Negative, Urine Ketones 2+, Urine Blood 3+ A, Urine Nitrate Negative, Urine Bilirubin Negative, Urine Urobilinogen 0.2, Ur Leukocyte Esterase Negative, Urine RBC 50-100, Urine WBC 3-5, Ur Squamous Epith Cells 20-50, Urine Bacteria 3+, Urine Mucus 4+ 04/04/24 16:50: WBC 10.0, RBC 4.06 L, Hgb 13.1, Hct 40.0, MCV 98.3, MCH 32.2 H, MCHC 32.7, RDW 13.4, Plt Count 377, MPV 8.5, Neut % (Auto) 70.9, Lymph % (Auto) 23.1, [place] % (Auto) 4.6, Eos % (Auto) 0.4, Baso % (Auto) 1.0, Neut # (Auto) 7.1, Lymph # (Auto) 2.3, [place] # (Auto) 0.5, Eos # (Auto) 0.0, Baso # (Auto) 0.1, Sodium 134 L, Potassium 3.9, Chloride 107, Carbon Dioxide 19 L, Anion Gap 11.9, BUN 18 H, Creatinine 1.00, Estimated Creat Clear 70, Estimated GFR 60, Est GFR ( Amer) 72, Glucose 76, Calcium 9.1, Total Bilirubin 0.5, AST 27, ALT 17, Alkaline Phosphatase 77, Total Protein 7.5, Albumin 4.4, Globulin 3.1, Albumin/Globulin Ratio 1.4, Serum HCG, Qual Negative 04/04/24 16:50 04/04/24 16:50 Orders (Tests/Meds): ED MEDICATIONS Discontinued Medications Generic Name Dose Route Start Last Admin Trade Name Freq PRN Reason Stop Dose Admin Fentanyl Citrate 50 mcg 04/04/24 16:24 04/04/24 16:32 Fentanyl 100mcg/2ml Vial IV 04/04/24 16:25 50 mcg ONCE ONE Administration Hydromorphone HCl 0.5 mg 04/04/24 16:41 04/04/24 18:53 Hydromorphone 4 Mg/Ml Syringe IV 04/04/24 16:42 Not Given ONCE ONE Hydromorphone HCl 0.5 mg 04/04/24 16:53 04/04/24 16:54 Hydromorphone 2mg/Ml Syringe IV 04/04/24 16:54 0.5 mg ONCE ONE Administration Hydromorphone HCl 0.5 mg 04/04/24 17:47 04/04/24 18:43 Hydromorphone 4 Mg/Ml Syringe IV 04/04/24 17:48 Not Given ONCE ONE Hydromorphone HCl 0.5 mg 04/04/24 17:54 04/04/24 17:56 Hydromorphone 2mg/Ml Syringe IV 04/04/24 17:55 0.5 mg ONCE ONE Administration Lactated Ringer's 1,000 mls @ 999 mls/hr 04/04/24 16:24 04/04/24 16:32 Lactated Ringer's 1000 Ml Bag IV 04/04/24 17:24 999 mls/hr .Q1H1M ONE Administration Ketorolac Tromethamine 15 mg 04/04/24 17:47 04/04/24 17:56 Ketorolac 30mg/Ml Vial IV 04/04/24 17:48 15 mg ONCE ONE Administration Ketorolac Tromethamine 10 mg 04/04/24 18:40 04/04/24 18:51 Ketorolac 10mg Tablet PO 04/04/24 18:41 Not Given ONCE ONE Ondansetron HCl 4 mg 04/04/24 16:24 04/04/24 16:32 Ondansetron 4mg/2ml Vial IV 04/04/24 16:25 4 mg ONCE ONE Administration Ondansetron HCl 4 mg 04/04/24 18:39 04/04/24 18:46 Ondansetron 4mg Odt SL 04/04/24 18:40 4 mg ONCE ONE Administration Oxycodone HCl 10 mg 04/04/24 18:39 04/04/24 18:46 Oxycodone 5mg Immediate Release Tablet PO 04/04/24 18:40 10 mg ONCE ONE Administration Oxycodone HCl 10 mg 04/04/24 20:20 04/04/24 20:22 Oxycodone 5mg Immediate Release Tablet PO 04/04/24 20:21 10 mg ONCE ONE Administration ORDERS Category Date Time Status CBC w/Auto Diff [Complete Blood Count Auto Diff] Stat Lab 04/04/24 16:50 Completed CMP [Comprehensive Metabolic Panel] Stat Lab 04/04/24 16:50 Completed HCG Qualitative, Serum Stat Lab 04/04/24 16:50 Completed Urinalysis and Microscopic Stat Lab 04/04/24 16:05 Completed Urine Culture Stat Micro 04/04/24 16:05 Received Medical Decision Narrative: Patient with history and exam per above presenting for evaluation of left flank pain in the setting of urolithiasis Diagnoses considered include urolithiasis, hydronephrosis, infected urolithiasis, pyelonephritis, among others ED workup and treatment included: ED MEDICATIONS Discontinued Medications Generic Name Dose Route Start Last Admin Trade Name Freq PRN Reason Stop Dose Admin Fentanyl Citrate 50 mcg 04/04/24 16:24 04/04/24 16:32 Fentanyl 100mcg/2ml Vial IV 04/04/24 16:25 50 mcg ONCE ONE Administration Hydromorphone HCl 0.5 mg 04/04/24 16:41 04/04/24 18:53 Hydromorphone 4 Mg/Ml Syringe IV 04/04/24 16:42 Not Given ONCE ONE Hydromorphone HCl 0.5 mg 04/04/24 16:53 04/04/24 16:54 Hydromorphone 2mg/Ml Syringe IV 04/04/24 16:54 0.5 mg ONCE ONE Administration Hydromorphone HCl 0.5 mg 04/04/24 17:47 04/04/24 18:43 Hydromorphone 4 Mg/Ml Syringe IV 04/04/24 17:48 Not Given ONCE ONE Hydromorphone HCl 0.5 mg 04/04/24 17:54 04/04/24 17:56 Hydromorphone 2mg/Ml Syringe IV 04/04/24 17:55 0.5 mg ONCE ONE Administration Lactated Ringer's 1,000 mls @ 999 mls/hr 04/04/24 16:24 04/04/24 16:32 Lactated Ringer's 1000 Ml Bag IV 04/04/24 17:24 999 mls/hr .Q1H1M ONE Administration Ketorolac Tromethamine 15 mg 04/04/24 17:47 04/04/24 17:56 Ketorolac 30mg/Ml Vial IV 04/04/24 17:48 15 mg ONCE ONE Administration Ketorolac Tromethamine 10 mg 04/04/24 18:40 04/04/24 18:51 Ketorolac 10mg Tablet PO 04/04/24 18:41 Not Given ONCE ONE Ondansetron HCl 4 mg 04/04/24 16:24 04/04/24 16:32 Ondansetron 4mg/2ml Vial IV 04/04/24 16:25 4 mg ONCE ONE Administration Ondansetron HCl 4 mg 04/04/24 18:39 04/04/24 18:46 Ondansetron 4mg Odt SL 04/04/24 18:40 4 mg ONCE ONE Administration Oxycodone HCl 10 mg 04/04/24 18:39 04/04/24 18:46 Oxycodone 5mg Immediate Release Tablet PO 04/04/24 18:40 10 mg ONCE ONE Administration Oxycodone HCl 10 mg 04/04/24 20:20 04/04/24 20:22 Oxycodone 5mg Immediate Release Tablet PO 04/04/24 20:21 10 mg ONCE ONE Administration ORDERS Category Date Time Status CBC w/Auto Diff [Complete Blood Count Auto Diff] Stat Lab 04/04/24 16:50 Completed CMP [Comprehensive Metabolic Panel] Stat Lab 04/04/24 16:50 Completed HCG Qualitative, Serum Stat Lab 04/04/24 16:50 Completed Urinalysis and Microscopic Stat Lab 04/04/24 16:05 Completed Urine Culture Stat Micro 04/04/24 16:05 Received Labs were independently interpreted by me, significant for white blood cell count 10.0, creatinine within normal limits, urinalysis with many squamous cells however hematuria, nitrite negative, bacteriuria After shared decision making patient declined CT imaging. [id number] ultrasound performed revealing no hydronephrosis. My clinical impression at this time is most consistent with urolithiasis. I discussed my clinical impression with patient and answered all questions. At this time, the evidence for any other entities in the differential is insufficient to warrant any further testing or ED observation. This was explained to the patient. The patient was advised that persistent or worsening symptoms require further evaluation. Critical Care Critical Care Time Critical Care Time: No
[2024-04-04 16:21] VITALS: BP 158/105; PULSE 86; RESP 16; TEMP 36.7; O2SAT 98; BMI 25.6
[2024-04-04 16:30] LABS: Microscopic, Urine URINE MICROSCOPIC (MICROSCOPIC)
[2024-04-04] MEDS: ONDANSETRON 4MG/2ML VIAL 4 MG IV (16:32)
[2024-04-04] MEDS: FENTANYL 100MCG/2ML VIAL 50 MCG IV (16:32)
[2024-04-04] MEDS: LACTATED RINGERS 1000ML 1,000 ML 999 ML IV (16:32)
[2024-04-04 16:36] LABS: Appearance,Urine CLEAR (Clear); Bilirubin,Urine Negative (Negative); Blood, Urine 3+ (Negative); Color,Urine YELLOW (Yellow); Glucose,Urine (UA) Negative (Negative); Ketones,Urine 2+ (Negative); Leukocyte Esterase,Urine Negative (Negative); Nitrate,Urine Negative (Negative); Protein,Urine TRACE (Negative); Specific Gravity, Urine 1.025 (1.005-1.030); Urobilinogen,Urine 0.2 EU/dl (0.2)
[2024-04-04 16:48] LABS: Bacteria,Urine 3+ /lpf; Mucus,Urine 4+ /lpf; RBC,Urine 50-100 #/hpf (0-3); Squamous Epithelial Cell,Urine 20-50 #/hpf (0-5)
[2024-04-04] MEDS: HYDROMORPHONE 2MG/ML SYRINGE 0.5 MG IV ×2 (16:54→17:56)
[2024-04-04 17:49] LABS: Basophils # 0.1 K/mm3 (0-0.2); Eosinophils % 0.4 % (0.1-12.0); Hemoglobin 13.1 g/dL (12.2-16.2); Lymphocytes # 2.3 K/mm3 (0.7-4.5); Lymphocytes % 23.1 % (10-50); Mean Corpuscular HGB Conc 32.7 g/dL (31.8-35.4); Mean Corpuscular Hemoglobin 32.2 pg (27.0-31.2); Mean Corpuscular Volume 98.3 fl (81-99); Mean Platelet Volume 8.5 fl (7.4-10.4); Monocytes # 0.5 K/mm3 (0.1-1.0); Monocytes % 4.6 % (1.7-9.3); Neutrophils # 7.1 K/mm3 (1.8-7.8); Neutrophils % 70.9 % (37.0-80.0); Platelet Count 377 K/mm3 (142-424); Red Blood Count 4.06 M/mm3 (4.20-5.40); Red Cell Distribution Width 13.4 % (11.5-17.5)
[2024-04-04] MEDS: KETOROLAC 30MG/ML VIAL 15 MG IV (17:56)
[2024-04-04 17:57] LABS: Albumin Level 4.4 g/dl (3.5-5.0); Chloride 107 mmol/L (98-107); Potassium 3.9 mmoL/L (3.5-5.1); Sodium 134 mmol/L (136-145)
[2024-04-04 17:59] LABS: Blood Urea Nitrogen 18 mg/dl (7-17)
[2024-04-04 18:00] LABS: Alanine Aminotransferase 17 U/L (12-78); Albumin/Globulin Ratio 1.4 (1.1-1.8); Alkaline Phosphatase 77 U/L (38-126); Anion Gap 11.9 mEq/L (5-15); Aspartate Amino Transferase 27 U/L (14-36); Bilirubin,Total 0.5 mg/dl (0.2-1.3); Calcium 9.1 mg/dl (8.4-10.2); Carbon Dioxide 19 mmol/L (22.0-30.0); Creatinine Clearance Estimated 70 mL/min (50-200); Estimated Glomerular Filt Rate 60 ml/min (>60); GFR (African American) 72 ML/MIN (>60); Globulin 3.1 g/dL (1.3-3.2); Glucose 76 mg/dl (74-100); Total Protein,Serum 7.5 g/dl (6.3-8.2)
[2024-04-04 18:15] VITALS: BP 132/81; PULSE 77; O2SAT 96
[2024-04-04 18:39] LABS: HCG Qualitative, Serum Negative (Negative)
[2024-04-04 18:45] VITALS: BP 142/98; PULSE 87; O2SAT 98
[2024-04-04] MEDS: ONDANSETRON 4MG ODT 4 MG SL (18:46)
[2024-04-04] MEDS: OXYCODONE 5MG IMMEDIATE RELEASE TABLET 10 MG PO ×2 (18:46→20:22)
[2024-04-04 20:21] VITALS: BP 147/103; PULSE 72; RESP 16; TEMP 36.7; O2SAT 98
--- NOTE | 2024-04-14 04:01 | PC.NURSE ---
urine culture suggests contamination, ntd
== END 2024-04-04 20:24 | disposition home or self-care (01) ==
PROVIDERS: Emergency Provider Emergency Medicine; PCP Family Medicine
DX: R10.9 Unspecified abdominal pain (principal); M54.50 Low back pain, unspecified; E03.9 Hypothyroidism, unspecified; G90.50 Complex regional pain syndrome I, unspecified
CPT/HCPCS: 80053; 81001; 84703; 85025; 87086; 96361; 96374; 96375; 96376; 99285; J1170; J1885; J2405; J3010; J7120; Q0162

== ENCOUNTER 2024-07-18 11:59 | Outpatient (CLI) | payer MEDICARE, SELFPAY ==
[2024-07-18 16:47] LABS: Alanine Aminotransferase 18 U/L (12-78); Alkaline Phosphatase 49 U/L (38-126); Aspartate Amino Transferase 28 U/L (14-36); Bilirubin,Total 0.6 mg/dl (0.2-1.3); Blood Urea Nitrogen 8 mg/dl (7-17); Calcium 8.8 mg/dl (8.4-10.2); Chloride 105 mmol/L (98-107); Chol/HDL Ratio 4.3 (1-3.5); Cholesterol 208 mg/dl (140-200); Estimated Glomerular Filt Rate 77 ml/min (>60); GFR (African American) 93 ML/MIN (>60); Glucose 66 mg/dl (74-100); HDL Cholesterol 48 mg/dl (40-60); Potassium 3.9 mmoL/L (3.5-5.1); Sodium 137 mmol/L (136-145); Total Protein,Serum 6.3 g/dl (6.3-8.2); Triglycerides 99 mg/dl (30-150); VLDL Cholesterol 20 mg/dL (0-40)
[2024-07-18 16:54] LABS: Albumin/Globulin Ratio 1.7 (1.1-1.8); Anion Gap 9.9 mEq/L (5-15); Carbon Dioxide 26 mmol/L (22.0-30.0); Globulin 2.3 g/dL (1.3-3.2)
[2024-07-18 16:58] LABS: Direct LDL Cholesterol 123.14 mg/dL (100-129)
[2024-07-18 17:03] LABS: Hematocrit 37.3 % (37.0-47.0); Hemoglobin 12.6 g/dL (12.2-16.2); Mean Corpuscular HGB Conc 33.8 g/dL (31.8-35.4); Mean Corpuscular Hemoglobin 31.4 pg (27.0-31.2); Red Blood Count 4.01 M/mm3 (4.20-5.40); Red Cell Distribution Width 13.3 % (11.5-17.5); White Blood Count 4.7 K/mm3 (4.8-10.8)
[2024-07-18 17:04] LABS: Basophils % 0.6 % (0.1-2.0); Eosinophils # 0.1 K/mm3 (0.0-0.4); Eosinophils % 1.3 % (0.1-12.0); Lymphocytes # 1.5 K/mm3 (0.7-4.5); Lymphocytes % 32.1 % (10-50); Mean Platelet Volume 10.5 fl (7.4-10.4); Monocytes # 0.3 K/mm3 (0.1-1.0); Monocytes % 6.6 % (1.7-9.3); Neutrophils # 2.8 K/mm3 (1.8-7.8); Neutrophils % 59.2 % (37.0-80.0); Platelet Count 275 K/mm3 (142-424)
[2024-07-18 17:05] LABS: T4 (Thyroxine) 8.3 ug/dl (5.53-11.0)
[2024-07-18 18:36] LABS: HIV Combo NEGATIVE (Negative)
[2024-07-18 19:00] LABS: Thyroid Stimulating Hormone 0.94 uIU/mL (0.465-4.68)
[2024-07-19 07:09] LABS: HCV Ab Non Reactive (Non Reactive)
[2024-07-19 11:04] LABS: FSH 19.2 mIU/mL (.)
== END 2024-07-18 23:59 | disposition home or self-care (01) ==
LOC: LAB.DROPOF 07-21 11:59
PROVIDERS: PCP Family Medicine; Visit Provider Family Medicine
DX: Z11.59 Encounter for screening for other viral diseases (principal); E03.9 Hypothyroidism, unspecified; N95.1 Menopausal and female climacteric states; L65.9 Nonscarring hair loss, unspecified; R53.83 Other fatigue
CPT/HCPCS: 80053; 80061; 83001; 84436; 84443; 85025; 86803; 87389

== ENCOUNTER 2024-07-29 14:24 | Outpatient (CLI) | payer MEDICARE, SELFPAY ==
--- NOTE | 2024-07-29 14:25 | US_ITS ---
PROCEDURE: US TRANSVAGINAL CLINICAL INDICATION: COMPARISON: No exams were available for comparison FINDINGS: Transvaginal sonographic images of the pelvis were obtained. UTERUS: Surgically absent The vaginal cuff is intact. LEFT OVARY: 4.5cmx3.3cmx3.1cm with a volume of 23.5ml. There are 3 follicles within the left ovary. Follicle 1. Measures 2.24 cm Follicle 2. Measures 1.68 cm Follicle 3. Measures 2.10 cm The largest follicle has a complex appearance with lacy material within the follicle. Most likely a resolving hemorrhagic cyst. Suggest follow-up in 6-8 weeks. RIGHT OVARY: Surgically absent Doppler flow to left ovary is seen. There is no fluid in the cul-de-sac. IMPRESSION: 1. The uterus is surgically absent. The vaginal vault is intact. 2. The right ovary is surgically absent. 3. The left ovary is enlarged and contains 3 follicles. One of the follicles has a complex appearance with lacy material within the cyst. Most likely a resolving hemorrhagic cyst. Suggest follow-up in 6-8 weeks. 4. No fluid in the cul-de-sac. Dictated by: Jaison Cho MD 07/30/2024 12:59 Jaison Cho MD in [facility] 07/30/2024 12:59
== END 2024-07-29 23:59 | disposition home or self-care (01) ==
LOC: RAD 14:25
PROVIDERS: PCP Family Medicine; Visit Provider Family Medicine
DX: R10.30 Lower abdominal pain, unspecified (principal)
CPT/HCPCS: 76830

== ENCOUNTER 2024-09-24 13:17 | Outpatient (CLI) | payer MEDICARE, SELFPAY ==
--- NOTE | 2024-09-24 13:17 | US_ITS ---
PROCEDURE: US TRANSVAGINAL CLINICAL INDICATION: 6 week follow-up abnormal transvaginal US , COMPARISON: US US TRANSVAGINAL from 07/29/2024 FINDINGS: Transvaginal sonographic images of the pelvis were obtained. UTERUS: The uterus is surgically absent. The vaginal cuff is intact. LEFT OVARY: 2.5cmx2.1cmx3.9cm with a volume of 10.9ml. There is a follicle measuring 2.1 cm x 2.0 cm x 1.9 cm. There is a 2nd smaller follicle measuring 1.0 cm. The previously described hemorrhagic cyst has now completely resolved. RIGHT OVARY: Surgically absent. Left ovary is seen and appears normal. Doppler flow to left ovary is seen. There is no fluid in the cul-de-sac. IMPRESSION: 1. The uterus is surgically absent. The vaginal vault is intact. 2. The right ovary is surgically absent. The left ovary appears normal and has 2 follicles. The largest follicle measures 2.1 cm. 3. The previously described hemorrhagic cyst in the left ovary has now completely resolved. No further follow-up necessary. 4. No fluid in the cul-de-sac. Dictated by: Jaison Cho MD 09/24/2024 14:24 Jaison Cho MD in [facility] 09/24/2024 14:24
== END 2024-09-24 23:59 | disposition home or self-care (01) ==
LOC: RAD 13:17
PROVIDERS: PCP Family Medicine; Visit Provider Family Medicine
DX: R93.89 Abnormal findings on diagnostic imaging of other specified body structures (principal); R10.9 Unspecified abdominal pain
CPT/HCPCS: 76830

== ENCOUNTER 2024-11-03 13:10 | Outpatient (CLI) | payer MEDICARE, SELFPAY ==
--- NOTE | 2024-11-03 13:12 | MM_ITS ---
PROCEDURE INFORMATION: Exam: MG Bilateral Screening 3D Mammography Exam date and time: 11/03/2024 1:32 PM Age: 44 years old Clinical indication: Screening exam. TECHNIQUE: Imaging protocol: Bilateral Screening tomosynthesis and 2D mammography including computer-aided detection (CAD) when performed. COMPARISON: 1. MG MM DIG SCREENING MAMM BI W/CAD 09/13/2023 3:24 PM 2. MG SCREEN MAMMO W CAD BILAT 06/29/2022 11:14 AM FINDINGS: MAMMOGRAPHY: Breast composition: There are scattered areas of fibroglandular density. Mass: No suspicious masses. Architectural distortion: None. Calcifications: No suspicious calcifications. Asymmetric density: None. Skin thickening: None. Axillary adenopathy: None. IMPRESSION: No mammographic evidence of malignancy. Annual screening is recommended unless otherwise clinically indicated. ASSESSMENT: BI-RADS Category 1: Negative.
== END 2024-11-03 23:59 | disposition home or self-care (01) ==
LOC: RAD 13:10
PROVIDERS: PCP Family Medicine; Visit Provider Family Medicine
DX: Z12.31 Encounter for screening mammogram for malignant neoplasm of breast (principal)
CPT/HCPCS: 77063; 77067